=== PATIENT | male | born 1950 | race Caucasian/White ===

== ENCOUNTER 2018-01-14 21:43 | Emergency (ER) | payer SELFPAY | END 2018-01-14 23:00 | disposition home or self-care (01) | LOC: M ED 23:00 | DX: S52.572A Other intraarticular fracture of lower end of left radius, initial encounter for closed fracture (principal); V58.4XXA Person boarding or alighting a pick-up truck or van injured in noncollision transport accident, initial encounter; Y92.89 Other specified places as the place of occurrence of the external cause; Z79.899 Other long term (current) drug therapy; Z79.01 Long term (current) use of anticoagulants | CPT/HCPCS: 73110 ==